=== PATIENT | female | born 1990 | race Caucasian/White ===

== ENCOUNTER 2017-01-06 02:15 | Emergency (ER) | payer BC ==
[~2017-01-06] VITALS: Ht 157.5 cm; Wt 65.2 kg
[~2017-01-06 02:15] MED LIST: KEFLEX500 MG PO; NUVARING VAGIN1 EACH VG
[2017-01-06 02:59] LABS: HEMATOCRIT 41.5 % (36.0-46.0); MCH 30.6 PG (29.0-34.0); MCHC 34.2 G/DL (30.0-36.0); MCV 89.4 FL (83-99); PLATELET COUNT 212 K/uL (156-360); RBC DIS.WIDTH-CV 11.9 % (11.8-14.6); RBC DIS.WIDTH-SD 38.7 % (39-53); RED BLOOD COUNT 4.64 M/uL (3.80-5.20)
[2017-01-06 03:05] LABS: WHITE BLOOD COUNT 11.8 K/uL (4.1-10.2)
[2017-01-06 03:08] LABS: CHLORIDE 105 mEq/L (99-109); POTASSIUM 3.6 mEq/L (3.7-5.4); SODIUM 136 mEq/L (136-147)
[2017-01-06 03:10] LABS: GLUCOSE 95 mg/dL (70-99)
[2017-01-06 03:11] LABS: ANION GAP 8 MEQ/L (2-14)
[2017-01-06 03:12] LABS: TOTAL BILIRUBIN 0.5 mg/dL (0.0-1.0)
[2017-01-06 03:13] LABS: ALKALINE PHOSPHATASE 79 IU/L (3-129)
[2017-01-06 03:14] LABS: GFR ESTIMATE (CALCULATED) > 59 mL/min/
[2017-01-06 03:15] LABS: UREA NITROGEN (BUN) 9 mg/dL (9-23)
[2017-01-06 03:34] LABS: ADD MIUA? YES; BILIRUBIN NEGATIVE; BLOOD NEGATIVE; COLOR YELLOW ((YELLOW)); GLUCOSE (STRIP) NEGATIVE; KETONES NEGATIVE; LEUKOCYTES TRACE; NITRITE NEGATIVE; PROTEIN (STRIP) NEGATIVE; SPECIFIC GRAVITY 1.011 (1.000-1.030); UROBILINOGEN 0.2 MG/DL (0.2-1.0)
[2017-01-06 03:44] LABS: BACTERIA 3+ /HPF; EPITHELIAL CELLS 1+ /HPF; MUCUS TRACE /LPF; RED BLOOD CELLS 0-5 /HPF (0-5); UCUL ADDED? NO; WHITE BLOOD CELLS 0-5 /HPF (0-5)
[2017-01-06 03:48] LABS: QUANTITATIVE HCG 117677.3 MIU/ML
[2017-01-06] MEDS ORDERED: MACROBID100 MG PO (05:22)
[2017-01-06 05:43] VITALS: BP 113/75
== END 2017-01-06 05:46 | disposition home or self-care (01) ==
LOC: EME 02:15
PROVIDERS: Emergency Medicine
DX: O26.891 Other specified pregnancy related conditions, first trimester (principal); R10.30 Lower abdominal pain, unspecified; Z3A.01 Less than 8 weeks gestation of pregnancy
CPT/HCPCS: 76801; 80053; 81003; 84702; 85027; 87086; 99281; 99284

== ENCOUNTER 2017-05-23 15:59 | Outpatient (CLI) | payer BC ==
[~2017-05-23] VITALS: Ht 157.5 cm; Wt 70.5 kg
[~2017-05-23 15:59] MED LIST changes: +MACROBID100 MG PO
[2017-05-23 16:07] VITALS: BP 132/80
[2017-05-23 16:22] VITALS: BP 121/77
[2017-05-23 16:37] VITALS: BP 113/66
[2017-05-23 16:52] VITALS: BP 122/73
[2017-05-23 17:03] LABS: UR CREATININE CONCENTRATION 77.6 MG/DL
[2017-05-23 17:07] VITALS: BP 128/74
[2017-05-23 17:07] LABS: HEMATOCRIT 33.5 % (36.0-46.0); MCH 31.3 PG (29.0-34.0); MCHC 33.4 G/DL (30.0-36.0); MCV 93.6 FL (83-99); MEAN PLAT.VOLUME 10.6 uM^3 (9.5-12.4); PLATELET COUNT 147 K/uL (156-360); RBC DIS.WIDTH-CV 12.5 % (11.8-14.6); RBC DIS.WIDTH-SD 43.3 % (39-53); RED BLOOD COUNT 3.58 M/uL (3.80-5.20); WHITE BLOOD COUNT 13.2 K/uL (4.1-10.2)
[2017-05-23 17:17] LABS: ANION GAP 8 MEQ/L (2-14); CHLORIDE 106 MEQ/L (99-109); POTASSIUM 3.8 MEQ/L (3.7-5.4); SAMPLE HEMOLYSIS CHECK 0; SAMPLE ICTERIC CHECK 0; SAMPLE LIPEMIA CHECK 0; SODIUM 138 MEQ/L (136-147); TOTAL BILIRUBIN 0.4 MG/DL (0.0-1.0)
[2017-05-23 17:23] LABS: ALKALINE PHOSPHATASE 102 IU/L (3-129); GFR ESTIMATE (CALCULATED) > 59 mL/min/; GLUCOSE 85 mg/dL (70-99); LACTATE DEHYDROGENASE 140 IU/L (20-246); UREA NITROGEN (BUN) 7 mg/dL (9-23); URIC ACID 3.4 mg/dL (3.1-9.2)
[2017-05-23 17:24] VITALS: BP 119/74
[2017-05-23] MEDS ORDERED: FIORICET 50-301 EACH PO (17:36)
== END 2017-05-23 17:55 | disposition home or self-care (01) ==
LOC: LDRP-OP → 2WEST 16:01 → LDRP-OP 09-21 12:23
PROVIDERS: Obstetrics & Gynecology
DX: O26.892 Other specified pregnancy related conditions, second trimester (principal); R51 Headache; Z3A.27 27 weeks gestation of pregnancy
CPT/HCPCS: 59025; 80053; 82570; 83615; 84156; 84439; 84443; 84550; 85027; G0378

== ENCOUNTER 2017-08-14 06:07 | Inpatient (IN) | payer BC ==
[2017-08-14] VITALS (29 sets, daily range): BP systolic 108–145; BP diastolic 62–89
[~2017-08-14] VITALS: Ht 157.5 cm; Wt 87.3 kg
[~2017-08-14 06:07] MED LIST changes: +FIORICET 50-301 EACH PO
[2017-08-14] MEDS ORDERED: PRENATAL TABLE1 EAC3 PO (06:40)
[2017-08-14 08:59] LABS: ADD MIUA? YES; BILIRUBIN NEGATIVE; BLOOD SMALL; COLOR YELLOW ((YELLOW)); GLUCOSE (STRIP) NEGATIVE; KETONES NEGATIVE; LEUKOCYTES TRACE; NITRITE NEGATIVE; PROTEIN (STRIP) NEGATIVE; SPECIFIC GRAVITY 1.008 (1.000-1.030); UROBILINOGEN 0.2 MG/DL (0.2-1.0)
[2017-08-14 09:07] LABS: BACTERIA RARE /HPF; EPITHELIAL CELLS 1+ /HPF; HYALINE CASTS 0-5 /LPF; MUCUS NONE SEEN /LPF; RED BLOOD CELLS 0-5 /HPF (0-5); UCUL ADDED? NO; WHITE BLOOD CELLS 0-5 /HPF (0-5)
[2017-08-14 09:58] LABS: BASOPHIL COUNT 0.1 K/uL (0-0.1); EOSINOPHIL (%) 0.3 % (0-5); EOSINOPHIL COUNT 0.1 K/uL (0-0.3); HEMATOCRIT 35.1 % (36.0-46.0); IMMATURE GRANULOCYTE COUNT 0.2 K/uL; INSTRUMENT ABS NEUTROPHIL CT 12.6 K/uL; LYMPHOCYTE COUNT 2.2 K/uL (1.0-2.8); MCH 28.1 PG (29.0-34.0); MCHC 32.8 G/DL (30.0-36.0); MCV 85.8 FL (83-99); MEAN PLAT.VOLUME 10.9 uM^3 (9.5-12.4); MONOCYTE (%) 6.1 % (3-12); NEUTROPHIL (%) 78.5 % (45-76); NEUTROPHIL COUNT 12.6 K/uL (1.8-6.4); PLATELET COUNT 201 K/uL (156-360); RBC DIS.WIDTH-CV 14.1 % (11.8-14.6); RED BLOOD COUNT 4.09 M/uL (3.80-5.20); WHITE BLOOD COUNT 16.1 K/uL (4.1-10.2)
[2017-08-14 10:12] LABS: ANION GAP 13 MEQ/L (2-14); CHLORIDE 101 MEQ/L (99-109); POTASSIUM 4.3 MEQ/L (3.7-5.4); SAMPLE HEMOLYSIS CHECK 1; SAMPLE ICTERIC CHECK 0; SAMPLE LIPEMIA CHECK 0; SODIUM 133 MEQ/L (136-147); TOTAL BILIRUBIN 0.8 MG/DL (0.0-1.0)
[2017-08-14 10:17] LABS: ALKALINE PHOSPHATASE 231 IU/L (3-129); GFR ESTIMATE (CALCULATED) > 59 mL/min/; GLUCOSE 86 mg/dL (70-99); UREA NITROGEN (BUN) 10 mg/dL (9-23); URIC ACID 5.6 mg/dL (3.1-9.2)
[2017-08-15] VITALS (10 sets, daily range): BP systolic 114–136; BP diastolic 58–80
[2017-08-16 07:58] LABS: BASOPHIL COUNT 0.1 K/uL (0-0.1); EOSINOPHIL (%) 0.9 % (0-5); EOSINOPHIL COUNT 0.1 K/uL (0-0.3); HEMATOCRIT 28.5 % (36.0-46.0); IMMATURE GRANULOCYTE (%) 1.7 % (0.0-0.7); IMMATURE GRANULOCYTE COUNT 0.3 K/uL; INSTRUMENT ABS NEUTROPHIL CT 10.3 K/uL; MCHC 31.2 G/DL (30.0-36.0); MCV 86.4 FL (83-99); MONOCYTE (%) 6.4 % (3-12); MONOCYTE COUNT 0.9 K/uL (0-0.8); NEUTROPHIL (%) 70.3 % (45-76); NEUTROPHIL COUNT 10.3 K/uL (1.8-6.4); PLATELET COUNT 178 K/uL (156-360); RBC DIS.WIDTH-CV 14.1 % (11.8-14.6); RBC DIS.WIDTH-SD 44.3 % (39-53); WHITE BLOOD COUNT 14.6 K/uL (4.1-10.2)
[2017-08-16 08:01] VITALS: BP 122/74
[2017-08-16] MEDS ORDERED: IBUPROFEN800 MG PO (11:40)
[2017-08-16] MEDS ORDERED: DOCUSATE SODIU100 MG PO (11:40)
== END 2017-08-16 14:15 | disposition home or self-care (01) | DRG 775 ==
LOC: LDRP-OP → 2WEST 06:08 → LDRP-OP 09-21 19:43
PROVIDERS: Advanced Practice Midwife; Obstetrics & Gynecology
PROC: 3E033VJ Introduction of Other Hormone into Peripheral Vein, Percutaneous Approach (ICD-10-PCS; principal; 2017-08-14)
PROC: 10907ZC Drainage of Amniotic Fluid, Therapeutic from Products of Conception, Via Natural or Artificial Opening (ICD-10-PCS; principal; 2017-08-14)
PROC: 3E0R3BZ Introduction of Anesthetic Agent into Spinal Canal, Percutaneous Approach (ICD-10-PCS; 2017-08-15)
PROC: 0HQ9XZZ Repair Perineum Skin, External Approach (ICD-10-PCS; 2017-08-15)
PROC: 0UQMXZZ Repair Vulva, External Approach (ICD-10-PCS; 2017-08-15)
PROC: 00HU33Z Insertion of Infusion Device into Spinal Canal, Percutaneous Approach (ICD-10-PCS; 2017-08-15)
PROC: 10E0XZZ Delivery of Products of Conception, External Approach (ICD-10-PCS; 2017-08-15)
DX: O77.0 Labor and delivery complicated by meconium in amniotic fluid (principal); O63.1 Prolonged second stage (of labor); O99.02 Anemia complicating childbirth; D62 Acute posthemorrhagic anemia; O71.82 Other specified trauma to perineum and vulva; O70.0 First degree perineal laceration during delivery; Z3A.39 39 weeks gestation of pregnancy; Z37.0 Single live birth
CPT/HCPCS: 80053; 81003; 84550; 85025; 86850; 86900; 86901; C1755; G0378; J1050; J2405; J2795; J7120